=== PATIENT | male | born 1990 | race Caucasian/White ===

== ENCOUNTER → 2023-09-30 08:09 | Outpatient (REF) | payer OTHER, SELFPAY | LOC: HWRAD 08:09 | PROVIDERS: ATTENDING PHYSICIAN Physician Assistant | DX: R74.8 Abnormal levels of other serum enzymes (principal); F41.0 Panic disorder [episodic paroxysmal anxiety] | CPT/HCPCS: 76700; 93005 ==

== ENCOUNTER 2025-02-10 23:30 | Inpatient (IN) | payer OTHER, SELFPAY ==
[2025-02-10 20:19] VITALS: BP 143/101
[2025-02-10 21:03] VITALS: BMI 46.0
[2025-02-10] MEDS: NSS 1000 IV (21:59)
[2025-02-10] MEDS: ZOFRAN 4 MG IV (21:59)
[2025-02-10 22:06] LABS: AST (SGOT) 739 U/L (17-59); Albumin 4.8 g/dl (3.5-5.0); Alkaline Phosphatase 254 U/L (38-126); Blood Urea Nitrogen 11 mg/dl (9-20); Calcium 10.0 mg/dl (8.4-10.2); Carbon Dioxide 29 mmol/L (22-30); Chloride 99 mmol/L (98-107); Estimated Creatinine Clearance > 125 ml/min; Glucose 123 mg/dl (70-99); Potassium 4.2 mmol/L (3.5-5.1); Sodium 135 mmol/L (135-145); Total Protein 8.2 g/dl (6.3-8.2); eGFR > 60.00
[2025-02-10] MEDS: PROTONIX IV 40 MG IV (22:10)
[2025-02-10 22:18] LABS: ALT (SGPT) 1455 U/L (0-50)
[2025-02-10 22:26] LABS: Lipase 2484 U/L (23-300)
[2025-02-10 22:57] VITALS: BP 126/81
--- NOTE | 2025-02-10 23:04 | ED.GENMED ---
History of Present Illness
General
Chief Complaint: Abdominal Pain
Time Seen by Provider: 02/10/25 21:10
History of Present Illness
History of Present Illness:
34-year-old male with history of high blood pressure presenting to the emergency department for upper abdominal discomfort with nausea and vomiting. Reports that symptoms started acutely last evening after he ate a pork sandwich and a piece of
pizza. He has since not been able to tolerate food by mouth, notes discomfort anytime that he lays flat. Reports known history of gallbladder stones, however reports that he has never had an issue with his gallbladder in the past, it was
incidentally found. Does note history of alcohol use. Denies chest pain or difficulty breathing. Denies fever. Denies any surgical history. Denies additional acute medical complaints
Phy Exam
Physical Exam
Physical Exam:
General: Well-appearing, no clinical signs of dehydration, nontoxic and in no acute distress
HEENT: protecting airway
Neck: appears supple
CV: Normal heart rate, regular rhythm
Resp: No accessory muscle use, no increased work of breathing
Abd: Soft and non-distended, mild tenderness to the right upper quadrant without rebound or guarding
Extremities: No deformities, no swelling
Neuro: alert, no focal neurologic deficit
: deferred
Rectal: deferred
Psych: Normal affect
Skin: Intact
Course
Orders/Labs/Results
Orders:
Orders
02/10/25 21:34
Comprehensive Metabolic Panel Urgent
Lipase Urgent
Comment: ADD ON
02/10/25 21:44
Add On- LAB Urgent
Tests Added?: lipase
0.9% Sodium Chloride 1000 ml [Nss] 1,000 ml IV BOLUS
Ondansetron Injectable [Zofran] 4 mg IV NOW STA
Pantoprazole [Protonix IV] 40 mg IV NOW STA
US Abdomen Complete/Upper Urgent
Comment:
Reason For Exam: RUQ pain, hx gallstones
02/10/25 21:50
Sterile Water [Sterile Water For Injection] 10 ml .ROUTE .STK-MED ONE
02/10/25 22:41
Complete Blood Count/With Diff Urgent
02/10/25 23:09
Piperacillin/Tazo 4.5 Gram [Zosyn] 4.5 gram in 100 ml IV NOW
Abnormal Lab Results
02/10/25 02/10/25
21:34 22:41
WBC 12.2 H 10^3/uL
(4.8-10.8)
MPV 10.6 H fL
(7.4-10.4)
Abs Immat Gran (auto) 0.1 H 10^3/uL
(0-0.05)
Absolute Neuts (auto) 9.3 H 10^3/uL
(1.4-6.5)
Absolute Monos (auto) 1.1 H 10^3/uL
(0.1-0.6)
Neutrophils % 76.3 H %
(42.2-75.2)
Lymphocytes % 12.9 L %
(20.5-51.1)
Glucose 123 H mg/dl
(70-99)
Total Bilirubin 4.6 H mg/dl
(0.2-1.3)
AST 739 H* U/L
(17-59)
ALT 1455 H* U/L
(0-50)
Alkaline Phosphatase 254 H U/L
(38-126)
Lipase 2484 H* U/L
(23-300)
02/10/25 22:41
02/10/25 21:34
Vital Signs
Initial and Last Documented VS:
Initial Vital Signs
Temp Pulse Resp BP Pulse Ox
98.5 F 101 16 143/101 99
02/10/25 20:19 02/10/25 20:19 02/10/25 20:19 02/10/25 20:19 02/10/25 20:19
Last Documented Vital Signs
Temp Pulse Resp BP Pulse Ox
98.5 F 102 18 126/81 100
02/10/25 20:19 02/10/25 23:00 02/10/25 23:00 02/10/25 22:57 02/10/25 23:00
MDM/Problems Addressed
MDM/Problems Addressed:
34-year-old male presenting to the emergency department with nausea, vomiting, upper abdominal discomfort. Vital signs on arrival are significant for high blood pressure which resolved without intervention.
On exam, patient is nontoxic. Currently without significant tenderness to the abdomen, minimal right upper quadrant tenderness. Notes that pain is worse with laying flat and eating. Suspect gallbladder pathology versus gastric pathology, possible
cholecystitis versus cholelithiasis versus pancreatitis versus gastritis. Will start patient on IV fluids, pantoprazole, Zofran. Will obtain right upper quadrant ultrasound imaging.
23:20 - Patient's labs are concerning for significant transaminitis as well as elevated T. bili of 4.6. Lipase is also elevated, greater than 2000. Ultrasound shows a gallbladder full of stones without overt signs of acute cholecystitis. There is
mention of biliary duct dilatation. At this time ultimately suspect choledocholithiasis and likely gallstone pancreatitis. Patient will require admission for MRCP and possible ERCP, as well as possible surgical consultation. Will give patient 1
dose of Zosyn for infection coverage.
*Pulse Oximetry
SaO2: 98
Oxygen Mode of Delivery: Room air
Patient hypoxic: no
*Critical Care Note
Total Time (30-74mins, 75-104mins- exclusive of procedures): Not Applicable
ED Attending Note
-
Portions of this chart may have been created with voice recognition software.� Occasional wrong word or��sound alike� substitutions may have occurred due to the inherent limitations of voice recognition software.
Discharge Plan
Departure
Referrals:
Estee Cabrera PA-C [Family Provider, Family Practice]
Interventions
Interventions:
*Risk Screen - Suicide Last Done: 02/10/25 20:19
*General Assessment Last Done: 02/10/25 21:03
*Neglect/Abuse Screening Last Done: 02/10/25 20:19
*ED- Fall Risk Assessment Last Done: 02/10/25 21:03
*ED COVID-19 Vaccine History Last Done: 02/10/25 21:03
PS-Jyqkqw-Xpkjnlmszv Assessment Last Done: 02/10/25 21:08
Discharge Date and Time
Print Language: LATVIAN
[2025-02-10 23:16] LABS: Hematocrit 42.9 % (39.0-52.0); Hemoglobin 14.4 g/dL (13.0-18.0); Mean Corp Hgb Conc. 33.6 g/dL (33.0-37.0); Mean Corpuscular Volume 87.6 fL (80.0-94.0); Nucleated Red Blood Cells % 0 % (-); Platelet Count 313 10^3/uL (130-400); Red Cell Dist. Width 13.3 % (11.5-14.5)
[2025-02-10] MEDS: ZOSYN 100 IV (23:29)
--- NOTE | 2025-02-10 23:36 | HPS.HSE ---
Addendum entered and electronically signed by Alexis Castillo MD 02/10/25 23:39:
MRCP ordered.
Original Note:
Family Physician
-
Family Physician: Estee Cabrera PA-C
Chief Complaint
-
abdominal pain
History of Present Illness
34-year-old male past medical history of hypertension, incidental gallstones, prediabetes, panic attacks, presenting with upper abdominal pain with nausea and vomiting starting yesterday evening after having pizza pizza and pork sandwich. No
diarrhea. He denies ever having pain like this before. Denies fevers or chills.
He states that he did have an abdominal ultrasound 2 years ago based on abnormal lab work which showed incidental gallstones. He saw surgeon at that time who did not recommend cholecystectomy because he was not having any symptoms.
He drinks excessive amounts of alcohol on the weekends sometimes up to 12 hard seltzer drinks per day on the weekends. He uses marijuana. Does not smoke.
No family history of GI problems.
Medical History
Past Medical History
Past Medical History: Reports Other (hypertension, incidental gallstones, prediabetes, panic attacks,)
Past Surgical History: Reports None
Social History
Tobacco: Non-smoker
Alcohol: Occasional
Drug: Marijuana
Family History
Family History: Not pertinent
Allergies / Home Medications
Allergies reflects when Allergies were last updated in [facility].
Home Medications with original date entered in [facility]
Allergy/Medication List:
Allergies
Allergy/AdvReac Type Severity Reaction Status Date / Time
No Known Allergies Allergy Unverified 02/10/25 20:19
Review of Systems
-
History Source: Patient
A 12 point ROS was completed and negative except as noted: Yes
Constitutional: Reports No Symptoms
EENT: Reports No Symptoms
Respiratory: Reports No Symptoms
Cardiac: Reports No Symptoms
Abdomen/GI: Reports See HPI
: Reports No Symptoms
Musculoskeletal: Reports No Symptoms
Skin: Reports No Symptoms
Neurological: Reports No Symptoms
Endocrine: Reports No Symptoms
Hematologic/Lymphatic: Reports No Symptoms
Psych: Reports No Symptoms
Physical Exam
Vital Signs
Vital Signs
Temp Pulse Resp BP Pulse Ox
98.5 F 102 18 126/81 98
02/10/25 20:19 02/10/25 23:00 02/10/25 23:00 02/10/25 22:57 02/10/25 23:22
Physical Exam
General: Well Developed, Well Nourished and No Apparent Distress
HEENT: NormoCephalic, Moist mucous membranes and Atraumatic
Respiratory: Clear
Cardiac: S1/S2 and Regular Rhythm; No Murmur or Rub
GI: Soft, Non Distended, Normal Bowel Sounds and Tender (epigastric ); No Organomegaly
Rectal: Deferred by Provider
Musculoskeletal: No Clubbing, No Cyanosis and No Edema
Skin: No Rash
Neuro: Nonfocal/grossly intact
Laboratory Results
-
02/10/25 22:41
02/10/25 21:34
Laboratory Results
Total Bilirubin 4.6 mg/dl (0.2-1.3) H 02/10/25 21:34
AST 739 U/L (17-59) H* 02/10/25 21:34
ALT 1455 U/L (0-50) H* 02/10/25 21:34
Alkaline Phosphatase 254 U/L (38-126) H 02/10/25 21:34
Lipase 2484 U/L (23-300) H* 02/10/25 21:34
Data Reviewed
-
Lab Data: Labs Reviewed by me
Old Records: Reviewed
Impression/Plan
-
IMPRESSION:
PLAN:
# Acute choledocholithiasis/gallstone pancreatitis
-Leukocytosis
-Lipase 2400
-Abdominal ultrasound shows cholelithiasis, gallbladder filled with numerous stones without evidence of acute cholecystitis, common bile duct measures 6 mm upper limits of normal, mild diffuse hepatic steatosis
- N.p.o.
- IV fluids
- Zosyn
-Zofran, Dilaudid as needed
- GI consulted
-general surgery consulted
Essential hypertension
- Continue lisinopril
Prediabetes
- Hold metformin
Panic attacks
- Continue SSRI
Obesity
Full code
DVT prophylaxis�heparin
N.p.o.
[2025-02-11] VITALS (18 sets, daily range): BP systolic 117–150; BP diastolic 68–94; PULSE 67; BMI 45.0
[2025-02-11] MEDS: LR 1000 IV ×3 (02:26→21:16)
--- NOTE | 2025-02-11 03:04 | PTCARENOTE ---
Pt admitted from ED with at bedside. AAOx3. No c/o pain or nausea. Pt afebrile, VSS. Reports hx of sleep apnea. Respiratory at bedside with cpap machine. Pt NPO. MRCP ordered. R hand IV C/D/I, infusing LR at 150 mL/hr without issues.
Pt continues on Zosyn.
[2025-02-11] MEDS: ZOSYN 50 IV ×4 (05:36→23:48)
[2025-02-11 07:11] LABS: Hematocrit 39.3 % (39.0-52.0); Hemoglobin 13.1 g/dL (13.0-18.0); Mean Corp Hgb Conc. 33.3 g/dL (33.0-37.0); Mean Corpuscular Volume 88.5 fL (80.0-94.0); Nucleated Red Blood Cells % 0 % (-); Platelet Count 273 10^3/uL (130-400); Red Cell Dist. Width 13.2 % (11.5-14.5)
[2025-02-11 07:56] LABS: AST (SGOT) 355 U/L (17-59); Albumin 4.1 g/dl (3.5-5.0); Alkaline Phosphatase 199 U/L (38-126); Blood Urea Nitrogen 9 mg/dl (9-20); Calcium 9.1 mg/dl (8.4-10.2); Carbon Dioxide 26 mmol/L (22-30); Chloride 104 mmol/L (98-107); Estimated Creatinine Clearance > 125 ml/min; Glucose 107 mg/dl (70-99); Potassium 4.1 mmol/L (3.5-5.1); Sodium 136 mmol/L (135-145); Total Protein 6.8 g/dl (6.3-8.2); eGFR > 60.00
[2025-02-11 08:08] LABS: ALT (SGPT) 1038 U/L (0-50)
[2025-02-11] MEDS: HEPARIN 5000 UNITS SC ×2 (08:23→21:27)
--- NOTE | 2025-02-11 09:19 | CON.GI ---
Addendum entered and electronically signed by Ariel Gomez MD 02/11/25 12:32:
I saw and examined the patient.
The quality engineer medical device note was reviewed and I agree with the note.
Right upper quadrant pain/nausea/vomiting/elevated LFT/elevated lipase-likely gallstone pancreatitis. Patient also drinks alcohol intermittently.
- N.p.o.
-Continue IV fluid
-Continue antibiotics started by medical team follow-up
-Trend LFT
- Pain management as per medical team
- MRI/MRCP for further evaluation r/o choledocholithias
- Follow-up with surgery for eventual cholecystectomy
Original Note:
Consultation
-
Date/Time Consultation Requested: 02/11/25 02:06
Date/Time Consultation Performed: 02/11/25 09:00
Requesting Provider: Anna Espinoza MD
Performing Provider: William Beltre DO (Resident); Ariel Gomez MD
Reason for Consultation: Cholelithiasis, Pancreatitis
Medical History
Chief Complaint / HPI
Chief Complaint: Abdominal Pain, Nausea, Vomiting
History of Present Illness:
Betito Nettles is a 34M with a PMHx of HTN, cholelithiasis, pre-diabetes, panic disorder, GERD, KEILA who presented to the ED with abdominal pain, nausea, and vomiting.
He states that 2 nights ago, he ate pizza and a pork sandwich for dinner. He woke from sleep in the middle of the night and vomited once. Vomit was described as NBNB bright orange liquid and consistent with the meal from the night before. Patient
then awoke the next morning and went to work, while trying to keep a light diet. At around 1400 yesterday, patient then started to experience abdominal pain. Pain was located mainly in the RUQ and last approximately 10-15 minutes. Patient endorsed
multiple of these pain episodes intermittently. He endorses pain was worse with movement and possible food related. He denies any prior episodes of similar pain. Also with one more episode of vomiting yesterday. He denies fever and chills. Went to
urgent care yesterday, who suggested he present to ED.
Endorses a history of cholelithiasis that was found on ultrasound imaging after outpatient labs showed elevated LFTs two years ago. Patient followed up with surgery at that time and it was decided to hold off on surgical intervention for the time
being, but to watch out for symptoms. Patient did not have abdominal pains at that time.
Patient endorses alcohol use of 12 drinks per day over 2 days per week.
ED Course: HR102, epigastric tenderness, WBC 12.2, AST 739, ALT 1455, Alk-Phos 254 TBili 4.6, Lipase 2484; US showing cholelithiasis without cholecystitis, CBD of 6mm and diffuse mild hepatic steatosis.
Feeling better today, endorses no pain currently. NPO but states he has an appetite. Has not required PRN analgesics.
Past Medical History
Past Medical History: Other (HTN, GERD, asymptomatic cholelithiasis, pre-diabetes, panic disorder, GERD, KEILA, binge drinking)
Past Surgical History: None
Social History
Tobacco: Non-Smoker
Alcohol: Binge Drinker (12 alcoholic beverages per day for 2 days per week)
Drug: Marijuana
Personal:
Living: With Family
Family History
Family History: Other (No family history of colon cancer, IBD, or other GI conditions. )
Allergies / Home Medications
Allergy/AdvReac Type Severity Reaction Status Date / Time
No Known Allergies Allergy Unverified 02/10/25 20:19
�Medication �Instructions �Recorded
Lisinopril 12.5 mg PO DAILY 02/11/25
metformin 500 mg tablet 500 mg PO DAILY 02/11/25
sertraline 50 mg PO DAILY 02/11/25
Review of Systems
-
All other systems: A 12 pt ROS was Negative except as stated above in HPI
Vital Signs
Temp Pulse Resp BP Pulse Ox
97.7 F 83 20 139/94 99
02/11/25 07:00 02/11/25 07:00 02/11/25 07:00 02/11/25 07:00 02/11/25 07:00
Physical Exam
Exam
General: Well Developed, Well Nourished, No Apparent Distress, Comfortable and Other (Conversant)
HEENT: Normocephalic, Anicteric and Moist Mucous Membranes
Respiratory: Clear and Non Labored Respirations; Negative Wheezes, Rales or Rhonchi
Cardiac: S1/S2
GI: Soft, Non Tender, Non Distended, Normal Bowel Sounds and Other (Segal's Sign negative. )
Skin: Warm
Neuro: Awake
Psych: Calm
Results
WBC 9.9 10^3/uL (4.8-10.8) 02/11/25 06:50
Hgb 13.1 g/dL (13.0-18.0) 02/11/25 06:50
Hct 39.3 % (39.0-52.0) 02/11/25 06:50
MCV 88.5 fL (80.0-94.0) 02/11/25 06:50
Plt Count 273 10^3/uL (130-400) 02/11/25 06:50
Absolute Neuts (auto) 6.6 10^3/uL (1.4-6.5) H 02/11/25 06:50
Sodium 136 mmol/L (135-145) 02/11/25 06:50
Potassium 4.1 mmol/L (3.5-5.1) 02/11/25 06:50
Chloride 104 mmol/L (98-107) 02/11/25 06:50
Carbon Dioxide 26 mmol/L (22-30) 02/11/25 06:50
BUN 9 mg/dl (9-20) 02/11/25 06:50
Creatinine 0.7 mg/dL (0.7-1.3) 02/11/25 06:50
Calcium 9.1 mg/dl (8.4-10.2) 02/11/25 06:50
Total Bilirubin 1.8 mg/dl (0.2-1.3) H D 02/11/25 06:50
AST 355 U/L (17-59) H 02/11/25 06:50
ALT 1038 U/L (0-50) H* 02/11/25 06:50
Alkaline Phosphatase 199 U/L (38-126) H 02/11/25 06:50
Lipase 2484 U/L (23-300) H* 02/10/25 21:34
US ABDOMEN:
Cholelithiasis, the gallbladder is filled with numerous stones which appears similar to prior examination. There are no secondary findings suggestive of acute cholecystitis.
The common bile duct measures 6 mm, upper limits of normal.
Mild diffuse hepatic steatosis.
Assessment / Plan
-
Betito Nettles is a 34M with a PMHx of HTN, asymptomatic cholelithiasis, prediabetes, panic disorder, GERD, and KEILA who presented to the emergency department with one day of intermittent RUQ abdominal pain associated with nausea and vomiting x 2.
Labs in the ED showed leukocytosis and a cholestatic pattern with elevated lipase signifying acute pancreatitis, likely secondary to gallstones. US of the abdomen showed stones in the gallbladder but no evidence of cholecystitis and an unequivocal
CBD diameter. Patient is scheduled for MRCP today.
- Follow up MRCP results.
- Downtrending LFTs likely signifying a passed stone.
- If MRCP shows ductal stone, consider ERCP.
- If no stone, consider elective cholecystectomy.
- Continue IVF for pancreatitis. Likely gallstone pancreatitis. Consider alcoholic pancreatitis.
- Continue NPO.
- Continue Zosyn
- Analgesic/Antiemetics as needed
Total Time Spent with Patient (in minutes): 32
-
-
Thank you for consultation and allowing me to participate in the patient's care. Please call the flotation tender GI physician during the after hours with any questions or concerns.
--- NOTE | 2025-02-11 11:04 | CON.GS ---
Addendum entered and electronically signed by Aakash Malave MD 02/11/25 14:38:
Patient seen and examined.
Patient is a 34 yo with a PMH of morbid obesity, depression/anxiety, HTN, and NIDDM who presents with 48 hours of abdominal pain. Mr. Foster states that his symptoms began Friday evening after a meal of pizza and a pork sandwich. He developed
severe epigastric pain radiating into bandlike distribution across his upper abdomen. Several episodes of nausea and vomiting. Symptoms improved and he went to work yesterday. He had a meal of soup with return in his symptoms. He had continued
abdominal discomfort prompting presentation to the ER. No fevers or chills. He denies any jaundice, pale stools, or tea colored urine. Currently he states his abdominal pain is significantly improved and resolved. He denies any prior attacks of
pain or discomfort. No noted family history of prior cholecystectomy.
Gen: NAD
Abd: obese, soft, NT/ND, non-peritoneal
Patient is a 34 yo M p/w choledocholithiasis
Likely a passed stone given his improvement in symptoms, labs, and MRI findings. Ultrasound and CT scan demonstrated a distended gallbladder with cholelithiasis and without any significant evidence of acute cholecystitis. The natural history and
pathophysiology of biliary and stone disease was discussed. Anatomy was reviewed. Workup thus far was reviewed. Options for management including medical management with a low-fat diet and attempt at outpatient management versus proceeding with
cholecystectomy during this admission were considered and discussed. Pros and cons of both approaches was discussed. Specifically, we discussed persistent or future attacks versus surgical risks.
Plan for a laparoscopic cholecystectomy with possible cholangiogram. Procedure itself, as well as the risks, benefits, and alternatives was discussed. Specifically, we discussed the risk of bleeding, infection, injury to surrounding structures
(bowel, bile ducts), typical postprocedural recovery including pain management, activity restrictions, and the 10 to 20% risks of fluctuations in GI function were discussed. CBD injury, and need for open procedure. All questions answered.
Consent signed.
-- Lap diann with IOC
-- NPO, IVF
-- Abx: Zosyn
Original Note:
Consultation
-
Date/Time Consultation Performed: 02/11/25 0940
Medical History
-
Chief Complaint: abdominal pain
History of Present Illness:
Mr Nettels is a 34 yo male with a h/o HTN and morbid obesity who presents with 2 days of upper abdominal pain which began overnight Friday into morning. Prior to onset of pain he had had a pizza with a pork sandwich and was awakened
later that night with severe epigastric pain radiating into the RLQ with recurrent vomiting. His symptoms had improved by morning and he went to work yesterday morning as usual. He had some soup later in the day with return of symptoms which
persisted causing him to present through the ED last night for evaluation. He currently denies pain and nausea and is nontender on exam. He notes his appetite is returning. He denies fevers or chills. He notes his urine was more orange than usual
but denies acholic stools or jaundice.
Past Medical History
Past Medical History: HTN and Other (incidental gallstones on US with prior work up for elevated LFT's, morbid obesity)
Past Surgical History: None
Social History
Tobacco: Non-Smoker
Alcohol: Binge Drinker (12 drinks per day on weekends)
Drug: Marijuana
Family History
Family History: Reviewed & Not Pertinent
Allergies / Home Medications
Allergy/AdvReac Type Severity Reaction Status Date / Time
No Known Allergies Allergy Unverified 02/10/25 20:19
�Medication �Instructions �Recorded �Confirmed �Type
lisinopril 20 1 tab PO DAILY 02/11/25 02/11/25 History
mg-hydrochlorothiazide 12.5 mg
tablet
metformin 500 mg tablet 500 mg PO DAILY 02/11/25 02/11/25 History
sertraline 50 mg PO DAILY 02/11/25 02/11/25 History
Review of Systems
-
History Source: Patient and Family
All other systems: Negative unless noted
A 10 point review of systems was completed, and was negative except as per HPI.
Physical Exam
Vital Signs
Temp Pulse Resp BP Pulse Ox
97.7 F 83 20 139/94 99
02/11/25 07:00 02/11/25 07:00 02/11/25 07:00 02/11/25 07:00 02/11/25 07:00
02/10/25 02/11/25 02/12/25
06:59 06:59 06:59
Actual Weight 130.238 kg
Body Mass Index (BMI) 45.0
Lab Results
02/11/25 06:50
02/11/25 06:50
WBC 9.9 10^3/uL (4.8-10.8) 02/11/25 06:50
Hgb 13.1 g/dL (13.0-18.0) 02/11/25 06:50
Hct 39.3 % (39.0-52.0) 02/11/25 06:50
Plt Count 273 10^3/uL (130-400) 02/11/25 06:50
Abs Immat Gran (auto) 0.1 10^3/uL (0-0.05) H 02/11/25 06:50
Neutrophils % 67.0 % (42.2-75.2) 02/11/25 06:50
Physical Exam
General: Well Developed and Well Nourished
HEENT: Moist Mucous Membranes
Respiratory: Non Labored Respirations
GI: Soft, Non Tender, Non Distended and Obese
Skin: Warm and Dry
Neuro: Awake, Alert and AO x 3
Psych: Calm
Assessment / Plan
-
34 yo male with a h/o gallstones presenting with acute onset of epigastric pain with n/v 2 days ago s/p a fatty meal with recurrent symptoms with eating. US imaging with cholelithiasis without pericholecystic edema, gallbladder wall thickening or
other evidence of acute cholecystitis. Liver enzymes markedly elevated on presentation with bilirubin of 4.6 now trended down to 1.8. Transaminitis present, also trending down. Pancreatitis present on admission with lipase of 2484, suspect gallstone
mediated. Leukocytosis present on admission is now resolved on IV zosyn. Aferilve. VSS. Pain, tenderness as well as n/v now resolved.
Plan:
Recommend laparoscopic cholecystectomy this admission. Timing TBD. Await MRCP to determine if choledocholithiasis is present as he may need ERCP first.
Continue NPO
IVF as per primary team
Analgesics/antiemetics prn
--- NOTE | 2025-02-11 11:10 | CM ---
Patient seen at bedside with and his mom
IA completed
Lives in an apartment with , 2 flight of stairs into apt.
PLOF: Independent, works, drives
DME: CPAP ([facility])
Denies VN/Rehab
Denies insecurities
PCP: Estee Cabrera, [facility]
Pharmacy: [address], [place]
PLAN: Home, no needs
--- NOTE | 2025-02-11 11:45 | W.PN.HOSP.TC ---
Today's Communication/Plan
-
MRCP
possible ERCP
eventual lap diann
NPO/IVF/zosyn
Assessment / Plan
Assessment / Plan
pt is a 34 year old male
Acute choledocholithiasis/gallstone pancreatitis--NPO/IVF--needs MRCP--apprec GI/surgery--may need ERCP--but will need lap diann this admission--pt pain free--? passed stone--zosyn
Essential hypertension- Continue lisinopril
Prediabetes- Hold metformin
Panic attacks- Continue SSRI
Obesity
code status--Full code
DVT proph�heparin
Anticipated Discharge: > 48 hours
Subjective/Interval History
-
Date of Service: February 11, 2025
pt waiting for MRI--wants to go home--supposed to go on vacation tomorrow
Objective Data
-
Labs:
Laboratory Results
02/11/25
06:50
WBC 9.9
Hgb 13.1
Hct 39.3
Plt Count 273
Sodium 136
Potassium 4.1
Chloride 104
Carbon Dioxide 26
BUN 9
Creatinine 0.7
Glucose 107 H
Calcium 9.1
Total Bilirubin 1.8 H D
AST 355 H
ALT 1038 H*
Alkaline Phosphatase 199 H
Vital Signs:
max temp for 24 hours
02/10/25
20:19
Temp 98.5 F
Vital Signs
Temp Pulse Resp BP Pulse Ox
97.7 F 83 20 139/94 99
02/11/25 07:00 02/11/25 07:00 02/11/25 07:00 02/11/25 07:00 02/11/25 07:00
Review of Systems
-
All other systems: Reviewed and negative
Physical Exam
-
General: Well Developed, Well Nourished, No Apparent Distress and Obese
HEENT: Normocephalic and Atraumatic
Respiratory: Clear to Auscultation; Negative Wheezes, Rhonchi or Crackles
Cardiac: Regular Rhythm and S1/S2; Negative Murmur
GI: Soft, Nontender, Nondistended and Normal Bowel Sounds
Musculoskeletal: No Clubbing, No Cyanosis and No Edema
Skin: Warm
Neuro: Awake
--- NOTE | 2025-02-11 14:38 | W.SUR.PREOP ---
Pre-Operative Surgical Note
-
I have examined this patient prior to the performance of the scheduled procedure.
The patient's condition is unchanged from the time of the current History and
Physical and the patient is able to undergo the scheduled procedure.
--- NOTE | 2025-02-11 16:52 | W.IMMPOSTOP ---
Surgical Immed Post Op Note
-
Primary Surgeon: Ananda
Assisting Surgeon: None
Pre-op Diagnosis: Choledocholithiasis
Post-op Diagnosis: Choledocholithiasis
Procedure Performed: Laparoscopic cholecystectomy with cholecystectomy
Anesthesia Type: General
Specimen / Cultures:
1. Gallbladder
Estimated Blood Loss: 3 cc
Complications: None
Operative Findings:
1. Distended normal appearing GB, stones and thick sludge within GB
2. Critical view
3. IOC negative
4. Artery taken with clips, duct with clips and 0 PDS Endoloop
[2025-02-11] MEDS: DILAUDID 0.5 MG IV ×2 (17:04→17:20)
[2025-02-11] MEDS: ROXICODONE 5 MG PO ×2 (19:59→23:59)
[2025-02-12 00:10] VITALS: BP 150/79
[2025-02-12 03:00] VITALS: BP 137/94
[2025-02-12] MEDS: ZOSYN 50 IV (06:13)
[2025-02-12] MEDS: LR 1000 IV (06:13)
[2025-02-12] MEDS: ROXICODONE 5 MG PO (06:23)
[2025-02-12] MEDS: HEPARIN 5000 UNITS SC (07:30)
[2025-02-12 07:59] VITALS: BP 157/104
[2025-02-12 09:44] LABS: Hematocrit 38.8 % (39.0-52.0); Hemoglobin 12.7 g/dL (13.0-18.0); Mean Corp Hgb Conc. 32.7 g/dL (33.0-37.0); Mean Corpuscular Volume 90.4 fL (80.0-94.0); Platelet Count 267 10^3/uL (130-400); Red Cell Dist. Width 13.2 % (11.5-14.5)
[2025-02-12 10:14] LABS: ALT (SGPT) 708 U/L (0-50); AST (SGOT) 113 U/L (17-59); Albumin 3.9 g/dl (3.5-5.0); Alkaline Phosphatase 171 U/L (38-126); Blood Urea Nitrogen 10 mg/dl (9-20); Calcium 8.9 mg/dl (8.4-10.2); Carbon Dioxide 29 mmol/L (22-30); Chloride 102 mmol/L (98-107); Estimated Creatinine Clearance > 125 ml/min; Glucose 139 mg/dl (70-99); Lipase 35 U/L (23-300); Magnesium 2.4 mg/dl (1.6-2.3); Potassium 3.9 mmol/L (3.5-5.1); Sodium 135 mmol/L (135-145); Total Protein 6.7 g/dl (6.3-8.2); eGFR > 60.00
--- NOTE | 2025-02-12 11:07 | W.PN.HOSP.TC ---
Today's Communication/Plan
-
discharge home
Assessment / Plan
Assessment / Plan
34 year old male with Acute choledocholithiasis/gallstone pancreatitis
1. Gallstone pancreatitis - s/p removal of GB.
Ate without difficulty
Had BM
Wound doing well
D/C home
Follow up care with surgery and PCP
2. Essential hypertension- Continue lisinopril
3. Prediabetes- re-start metformin
4. Panic attacks- Continue SSRI
5. Obesity - reduce calories and exercise more
code status--Full code
DVT proph�heparin
Anticipated Discharge: Today
Subjective/Interval History
-
Date of Service: February 12, 2025
feels well. Wants to go home. States he was cleared by surgery to go home.
Objective Data
-
Labs:
Laboratory Results
02/12/25
08:41
WBC 13.9 H
Hgb 12.7 L
Hct 38.8 L
Plt Count 267
Sodium 135
Potassium 3.9
Chloride 102
Carbon Dioxide 29
BUN 10
Creatinine 0.8
Glucose 139 H
Calcium 8.9
Total Bilirubin 1.1
AST 113 H
ALT 708 H*
Alkaline Phosphatase 171 H
Vital Signs:
Vital Signs
Temp Pulse Resp BP Pulse Ox
98.4 F 100 16 157/104 98
02/12/25 07:59 02/12/25 07:59 02/12/25 07:59 02/12/25 07:59 02/12/25 07:59
I&O
02/11/25 02/12/25 02/13/25
06:59 06:59 06:59
Intake Total 1919
Balance 1919
Review of Systems
-
History Source: Patient
All other systems: Reviewed and negative
Physical Exam
-
General: Well Developed, Well Nourished, No Apparent Distress, Comfortable and Morbidly Obese
HEENT: Normocephalic, Atraumatic, Moist Mucous Membranes, Nose Appears Normal and Ears Appear Normal
Respiratory: Clear to Auscultation
Cardiac: Regular Rhythm and S1/S2
GI: Soft, Nontender and Nondistended
Musculoskeletal: No Clubbing, No Cyanosis and No Edema
Neuro: Awake, Alert, Oriented and AO x 3
Psych: Calm
Data Reviewed
-
Labs: Labs Reviewed by me
--- NOTE | 2025-02-12 11:12 | W.DCSUMMARY ---
Discharge Summary
Discharge Data
Date of Admission: 02/10/25
Date of Discharge: 02/12/25
Total time spent discharging patient (in min): 61
-
Pending Results: No
Hospital Course
Initial presentation:
34-year-old man presented with upper abdominal pain with nausea and vomiting starting wjg-jrppaz-hywrj evening after having pizza pizza and pork sandwich. No diarrhea. He denied ever having pain like this before. Denies fevers or chills. He
stated that he did have an abdominal ultrasound 2 years ago based on abnormal lab work which showed incidental gallstones. He saw surgeon at that time who did not recommend cholecystectomy because he was not having any symptoms. He drinks
excessive amounts of alcohol on the weekends sometimes up to 12 hard seltzer drinks per day on the weekends. He uses marijuana. Does not smoke. No family history of GI problems.
Diagnosis present on admission:
hypertension
incidental gallstones
prediabetes
panic attacks
Hospital course and plan by problem:
1. Gallstone pancreatitis - s/p removal of GB.
Ate without difficulty
Had BM
Wound doing well
D/C home
Follow up care with surgery and PCP
2. Essential hypertension- Continue lisinopril
3. Prediabetes- re-start metformin on discharge
4. Panic attacks- Continue SSRI on discharge
5. Obesity - reduce calories and exercise more
code status during hospitalization -- Full code
DVT proph while hospitalized � heparin
Discharge Plan
-
Patient Disposition: Home (Routine Discharge)
Discharge Diagnosis/Procedures: Laparoscopic cholecystectomy with cholangiogram
Condition: Good
Diet: As tolerated, Regular and Low Fat
Additional Diets: If you have loose stools after surgery, switch to a low fat diet
Activity: No strenuous activity
Additional Activity: Do not lift over 20lbs for the next 2-3 weeks
Driving Restrictions: No driving for 24 hours
Bathing Restrictions: OK to Shower
Wound Care: Allow the glue to flake off your incisions on its own over the next 2-3 weeks. Do not soak in tubs or swim during that time.
Activity Restrictions/Additional Instructions:
Call your surgeon if you have fever >100.5, nausea with vomiting or worsening pain
Referrals:
Estee Cabrera PA-C [Family Provider, Family Practice]
Aakash Malave MD [Active, Surgical] - in two to four weeks
Prescriptions:
New
acetaminophen 325 mg Tablet
650 mg PO Q6HPRN PRN (Reason: mild pain) Qty: 30 0RF
Continued
sertraline
50 mg PO DAILY
Rx Instructions:
Daily in AM
metformin 500 mg Tablet
500 mg PO DAILY
Rx Instructions:
Daily in Evening
lisinopril-hydrochlorothiazide 20-12.5 mg tablet
1 tab PO DAILY
Discharge Orders:
Discharge Patient (As Directed); Ordered 02/12/25
Ordered By: Chris Trevino
Discharge Date and Time
Print Language: COL[place]
--- NOTE | 2025-02-12 11:20 | W.PN.GS2 ---
Today's Communication / Plan
-
dispo planning
Assessment / Plan
-
34 yo male who presented with gallstone mediated pancreatitis and likely passage of stone now POD #1 lap diann with normal IOC
AFVSS
LFT's trending down
Mild reactive leukocytosis
Tolerating diet
Pain much improved
Plan:
Ok for diet as tolerated
Analgesics prn for post op discomfort
Reviewed post op care with patient and
Ok for d/c from surgical standpoint
Subjective Data
-
Date of Service: February 12, 2025
Pt seen and examined at bedside with Dr. Davalos. Denies n/v. Tolerating PO intake. Feels much better than yesterday. Minimal discomfort.
Objective Data
-
Intake and Output
02/11/25 02/12/25 02/13/25
06:59 06:59 06:59
Intake Total 1919 / 0
Balance 1919 / 1920
Intake:
Oral fluids 960 / 960
IV fluids (Total) 960 / 960
Other:
Number of approximated MODERATE 2 3
amounts of urine
How many times incontinent 1
MODERATE amount urine
Vital Signs
Temp Pulse Resp BP Pulse Ox
98.4 F 100 16 157/104 98
02/12/25 07:59 02/12/25 07:59 02/12/25 07:59 02/12/25 07:59 02/12/25 07:59
Lab Results
02/12/25 08:41
02/12/25 08:41
Calcium 8.9 mg/dl (8.4-10.2) 02/12/25 08:41
Magnesium 2.4 mg/dl (1.6-2.3) H 02/12/25 08:41
Total Bilirubin 1.1 mg/dl (0.2-1.3) 02/12/25 08:41
AST 113 U/L (17-59) H 02/12/25 08:41
ALT 708 U/L (0-50) H* 02/12/25 08:41
Alkaline Phosphatase 171 U/L (38-126) H 02/12/25 08:41
Total Protein 6.7 g/dl (6.3-8.2) 02/12/25 08:41
Albumin 3.9 g/dl (3.5-5.0) 02/12/25 08:41
Physical Exam
-
NAD
ABD soft, nt, nd
Incisions healing well, intact glue
[2025-02-12 11:23] VITALS: BP 151/95
== END 2025-02-12 11:50 | disposition home or self-care (01) | DRG 417 ==
LOC: 3 WEST ACU 23:30
PROVIDERS: Internal Medicine; Radiology Diagnostic Radiology; ADMITTING PHYSICIAN Hospitalist; ATTENDING PHYSICIAN Internal Medicine; CONSULT PHYSICIAN Internal Medicine Gastroenterology; EMERGENCY PHYSICIAN Student in an Organized Health Care Education/Training Program; FAMILY PHYSICIAN Physician Assistant; OTHER PHYSICIAN Surgery
PROC: BF131ZZ Fluoroscopy of Gallbladder and Bile Ducts using Low Osmolar Contrast (ICD-10-PCS; 2025-02-11)
PROC: 0FT44ZZ Resection of Gallbladder, Percutaneous Endoscopic Approach (ICD-10-PCS; 2025-02-11)
PROC: 5A09357 Assistance with Respiratory Ventilation, Less than 24 Consecutive Hours, Continuous Positive Airway Pressure (ICD-10-PCS; 2025-02-11)
DX: K80.70 Calculus of gallbladder and bile duct without cholecystitis without obstruction (principal); K85.10 Biliary acute pancreatitis without necrosis or infection; Z68.42 Body mass index [BMI] 45.0-49.9, adult; I10 Essential (primary) hypertension; R74.01 Elevation of levels of liver transaminase levels; R73.03 Prediabetes; F41.0 Panic disorder [episodic paroxysmal anxiety]; K76.0 Fatty (change of) liver, not elsewhere classified; E66.01 Morbid (severe) obesity due to excess calories; K66.0 Peritoneal adhesions (postprocedural) (postinfection); K21.9 Gastro-esophageal reflux disease without esophagitis; F12.90 Cannabis use, unspecified, uncomplicated; G47.33 Obstructive sleep apnea (adult) (pediatric); Z79.84 Long term (current) use of oral hypoglycemic drugs
CPT/HCPCS: 74183; 74300; 76000; 76700; 80053; 83690; 83735; 85025; 85027; 88304; 94660; 96361; 96365; 96375; 99285; 99406; A4300; A9575